=== PATIENT | male | born 1940 | race Caucasian/White ===

== ENCOUNTER 2016-11-11 23:29 | Emergency (ER) | payer OTHER ==
[2016-11-11 23:57] LABS: BASOPHIL % 0.4 % (0-2); PLATELET COUNT 142 x10^3mcL (130-400); RED CELL DISTRIBUTION WIDTH 14.1 % (11.5-14.5)
[2016-11-12 00:22] LABS: CALCIUM 9.2 mg/dL (8.5-10.1); CARBON DIOXIDE 31.5 mmol/L (21-32); CHLORIDE SERUM 105 mmol/L (98-107); GLUCOSE SERUM 105 mg/dL (74-106); POTASSIUM SERUM 4.2 mmol/L (3.5-5.1); SODIUM SERUM 142 mmol/L (136-145)
[2016-11-12 00:26] LABS: ALKALINE PHOSPHATASE 63 U/L (46-116); ALT/SGPT 10 U/L (16-63); AST/SGOT 21 U/L (15-37); BILIRUBIN TOTAL 0.6 mg/dL (0.20-1.00); CHOLESTEROL 191 mg/dL (<200); HDL CHOLESTEROL 78 mg/dL (40-60); PHOSPHOROUS 2.6 mg/dL (2.5-4.9); TOTAL PROTEIN, SERUM 7.4 g/dL (6.4-8.2)
[2016-11-12 00:52] VITALS: BP 122/64
== END 2016-11-12 00:52 | disposition left against medical advice (07) ==
LOC: ED 23:29
PROVIDERS: Emergency Medicine
DX: I48.91 Unspecified atrial fibrillation (principal); G20 Parkinson's disease; Z90.49 Acquired absence of other specified parts of digestive tract; Z90.89 Acquired absence of other organs
CPT/HCPCS: 36415; 83880; Q0092

== ENCOUNTER → 2019-01-04 | Outpatient (CLI) | payer OTHER | END | disposition home or self-care (01) | LOC: US 13:13 | PROC: BH48ZZZ Ultrasonography of Lower Extremity (ICD-10-PCS; principal; 2019-01-04) | PROC: B54CZZZ Ultrasonography of Left Lower Extremity Veins (ICD-10-PCS; 2019-01-04) | DX: R22.42 Localized swelling, mass and lump, left lower limb (principal); M79.605 Pain in left leg | CPT/HCPCS: Q0092 ==